=== PATIENT | male | born 1960 | race Caucasian/White ===

== ENCOUNTER 2016-07-20 05:35 | Inpatient (IN) | payer OTHER ==
[~2016-07-20 05:35] MED LIST: ALEVE220 M3 PO; ATIVAN0.5 M1 PO; ATIVAN1 MG PO; B-12500 MC1 PO; DAILY VITAMIN1 EAC5 PO; FISH OIL 1,2001 EAC5 PO; PAMELOR25 M1 PO; PERCOCET 7.5-31 EAC1 PO; TOPAMAX25 MG PO
[2016-07-20 06:49] LABS: HGB-HEMOGLOBIN 14.1 gm/dl (13.5-17.0); MCV (MEAN CELL VOLUME) 87.6 fl (82.0-96.0); RED CELL DISTRIBUTION WIDTH 12.7 % (12.4-16.4)
[2016-07-21 08:02] LABS: ANION GAP 11 mmol/L (0-20); BLOOD UREA NITROGEN 18 mg/dl (6-24); CALCIUM 8.6 mg/dl (8.5-10.5); CARBON DIOXIDE-VENOUS 28 mmol/L (22-32); CHLORIDE 106 mmol/l (96-110); CREATININE 0.76 mg/dl (0.60-1.30); GLUCOSE 106 mg/dL (70-110); POTASSIUM 3.9 mmol/L (3.7-5.1); SODIUM 141 mmol/L (135-145); eGFR VALUE FOR BLACK >90 mL/Min
[2016-07-22] MEDS ORDERED: ROBAXIN-750750 M1 PO (15:01)
[2016-07-22] MEDS ORDERED: PERCOCET 5-3251 EACH PO (15:02)
[2016-07-22] MEDS ORDERED: TYLENOL325 M2 PO (15:03)
[2016-07-22] MEDS ORDERED: SENNA PLUS TAB1 EAC1 PO (15:05)
== END 2016-07-22 18:21 | DRG 460 ==
LOC: SHSA 05:35 → ORE 08:38 → PACU 11:16 → 5EB 12:10
PROVIDERS: Anesthesiology; ADMIT Neurological Surgery
PROC: 0SG30A0 Fusion of Lumbosacral Joint with Interbody Fusion Device, Anterior Approach, Anterior Column, Open Approach (ICD-10-PCS; principal; 2016-07-20)
PROC: 07DR3ZZ Extraction of Iliac Bone Marrow, Percutaneous Approach (ICD-10-PCS; principal; 2016-07-20)
DX: M48.06 Spinal stenosis, lumbar region (principal); G89.4 Chronic pain syndrome; M54.16 Radiculopathy, lumbar region; G47.00 Insomnia, unspecified; Z87.891 Personal history of nicotine dependence; Z79.891 Long term (current) use of opiate analgesic; Z79.899 Other long term (current) drug therapy
CPT/HCPCS: C1713; J0690; J1170; J2800; J3010; J3370